=== PATIENT | female | born 1935 | race Caucasian/White ===

== ENCOUNTER → 2016-07-31 | Outpatient (CLI) | payer MEDICARE, BC ==
[~2016-07-31] MED LIST: ALEVE; ALEVE220 M1 PO; ASPIRIN; CARAFATE; FAMOTIDINE; FAMOTIDINE PO; HYDROCHLOROTHIA25 MG PO; LEVAQUIN PO; LISINOPRIL10 MG PO; LISINOPRIL20 MG PO; LISINOPRIL5 MG PO; METOPROLOL SUCC50 MG PO; MEVACOR; MEVACOR20 M1 PO; PEPCID40 MG PO; TOPROL XL 50 MG50 MG PO; XANAX0.5 M1 PO
--- NOTE | ~2016-07-31 | MY11 ---
[facility] A Service of [facility] RADIOLOGY TEXT RESULTS PATIENT: SHANDA BARRY LOCATION: [facility] : 34 UNIT #: [id number] AGE: [address]: Nesha Briseno MD SEX: F ORDER DR: [id number] [facility] [address] [place], [place] [address] [id number] O MR#: [id number] Acc #: [id number] NAME: SHANDA BARRY : 1935 SEX: F STUDY DATE/TIME: 07/31/2016 10:12 UNIT: [facility] ROOM: STUDY DESCRIPTION: MY Mammogram Screening Dig Emmanuel Attending Physician: Nesha Briseno M.D. Ordering Physician: Nesha Briseno M.D. Primary Care Physician: Nesha Briseno M.D. MEDICAL IMAGING REPORT This report is preliminary unless electronic signature is present EXAM Digital screening mammogram 07/31/2016 [facility]. HISTORY 80-year-old woman no risk elevation. Annual screen. COMPARISON Mammograms date to 10/12/2005 with most recent 01/06/2015. FINDINGS Digital imaging of each breast was completed utilizing screening protocol. Review includes FDA-approved CAD device. Breast parenchyma is partially fatty replaced. There are remaining parenchymal densities bilaterally predominantly upper outer quadrants and slightly dominant on the right. There are benign calcifications noted as well. I see no dominant mass. There are no suspicious microcalcifications and no architectural deformity. IMPRESSION Stable benign mammogram. Annual screening is optional at this age. Patients over the age of 40 are entered into a reminder system with target due date for the next mammogram. BIRADS: 2 Benign finding. Dictated by... Lionel Sharma M.D. THIS IS AN ELECTRONICALLY VERIFIED REPORT Lionel Sharma M.D. at 07/31/2016 1:41 PM ALVA/danny TD: 07/31/2016 13:21 [facility] A Service of [facility] RADIOLOGY TEXT RESULTS PATIENT: SHANDA BARRY LOCATION: [facility] : 34 UNIT #: [id number] AGE: [address]: Nesha Briseno MD SEX: F ORDER DR: JOB #: [id number] MEDICAL IMAGING REPORT Page 1 of 1 COPY
== END | disposition home or self-care (01) ==
LOC: CWCC 09:54
DX: Z12.31 Encounter for screening mammogram for malignant neoplasm of breast (principal)
CPT/HCPCS: G0202

== ENCOUNTER → 2016-10-09 | Outpatient (CLI) | payer MEDICARE, BC ==
--- NOTE | ~2016-10-09 | US37 ---
[facility] A Service of [facility] & [facility] RADIOLOGY TEXT RESULTS PATIENT: SHANDA BARRY LOCATION: [facility] : 34 UNIT #: [id number] AGE: [address]: Nesha Briseno MD SEX: F ORDER DR: [id number] [facility] [address], [place] [address] [id number] O MR#: [id number] Acc #: [id number] NAME: SHANDA BARRY : 1935 SEX: F STUDY DATE/TIME: 10/09/2016 13:33 UNIT: [facility] ROOM: STUDY DESCRIPTION: US Carotid W/Doppler Bilateral Attending Physician: Nesha Briseno M.D. Referring Physician: Nesha Briseno M.D. Ordering Physician: Nesha Briseno M.D. Primary Care Physician: Nesha Briseno M.D. MEDICAL IMAGING REPORT This report is preliminary unless electronic signature is present EXAM Bilateral carotid Doppler REASON FOR EXAM Dizziness x4 months. FINDINGS The right common internal and external carotid arteries are widely patent without plaque or intimal thickening. Velocity in the common carotid artery is 69 cm/sec. Peak systolic velocity of the right proximal internal carotid artery is 53 cm/sec with an end-diastolic velocity of 16 cm/sec for an ICA/CCA ratio of 0.77. External carotid artery had a velocity of 63 cm/sec. The vertebral artery is visualized with antegrade flow. The left common carotid, internal carotid and external carotid arteries are patent with no appreciable plaque or intimal thickening throughout. Velocity of the common carotid artery is 89 cm/sec. Peak systolic velocity of the left proximal internal carotid artery is 65 cm/sec with an end-diastolic velocity of 17 cm/sec for an ICA/CCA ratio of 0.73. External carotid artery had a velocity of 62 cm/sec. The vertebral artery is visualized with antegrade flow. IMPRESSION 1. Normal appearance of the right and left internal carotid arteries without stenosis. 2. No stenosis of the external carotid arteries. 3. Antegrade flow of the vertebral arteries. Dictated by... Halima Brown M.D. [facility] A Service of [facility] & [facility] RADIOLOGY TEXT RESULTS PATIENT: SHANDA BARRY LOCATION: [facility] : 34 UNIT #: [id number] AGE: [address]: Nesha Briseno MD SEX: F ORDER DR: THIS IS AN ELECTRONICALLY VERIFIED REPORT Halima Brown M.D. at 10/11/2016 10:34 AM MIGUEL/sunitha TD: 10/10/2016 04:25 JOB #: [id number] MEDICAL IMAGING REPORT Page 1 of 1 COPY
== END | disposition home or self-care (01) ==
LOC: CNIV 12:44
DX: R42 Dizziness and giddiness (principal)
CPT/HCPCS: 93880